=== PATIENT | female | born 1960 | race Two or more races ===

== ENCOUNTER 2024-11-03 18:39 | Inpatient (IN) | payer MEDICAID, OTHER ==
[~2024-11-03] VITALS: Ht 157.5 cm; Wt 69.1 kg
[2024-11-03] MEDS: SODIUM CHLORIDE 0.9% 1,000 ML IVB ONE (19:30)
--- NOTE | 2024-11-03 19:37 | ED.PDOC ---
GI ASSESSMENT HPI Comments 64-year-old female came to ER for abdominal pain. Patient states for the past 3 days, she has been having right upper quadrant abdominal pain, sharp cramping, nonradiating, associated bouts of nausea, vomiting and diarrhea. Patient is status post cholecystectomy Chief Complaint: Abdominal Pain Time Seen by MD: 19:36 Reviewed Notes: Nurses Notes Allergies: Coded Allergies: NO KNOWN ALLERGIES (Unverified , 11/03/24) Information Source: Patient Mode of Arrival: Wheelchair Timing: Days Duration: Intermittent Prehospital treatment: None Quality: Cramping, Sharp Vomitus: Watery Stool: Loose, Watery Severity: Moderate Recent: None Recent Hx of: Abdominal Surgery Pain Location: RUQ Modifying Factors: Nothing Associated sign and symptoms: Nausea, Vomiting, Diarrhea, Abdominal Pain Past Medical History PAST MEDICAL HISTORY: Denies Past Medical History (Other): Blindness Surgical History: Cholecystectomy Surgical History (Other): Knee surgery 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: 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 all MATERIALS TECHNICIAN Hx Family History Family History: Reviewed,noncontributory to illness Social History Smoker: Non-Smoker Alcohol: Denies ETOH Use Drugs: Denies Drug Use Lives In: Home Constitutional: denies: chills, diaphoresis, fatigue, fever, malaise, sweats, weakness, others EENTM: denies: blurred vision, double vision, ear bleeding, ear discharge, ear drainage, ear pain, ear ringing, eye pain, eye redness, hearing loss, mouth pain, mouth swelling, nasal discharge, nose bleeding, nose congestion, nose pain, photophobia, tearing, throat pain, throat swelling, voice changes, others Respiratory: denies: cough, hemoptysis, orthopnea, SOB at rest, shortness of breath, SOB with excertion, stridor, wheezing, others Cardiovascular: denies: chest pain, dizzy spells, diaphoresis, Dyspnea on exertion, edema, irregular heart beat, left arm pain, lightheadedness, palpitations, PND, syncope, others Gastrointestinal: reports: abdominal pain, diarrhea, nausea, poor appetite, vomiting; denies: abdomen distended, blood streaked bowels, constipated, dysphagia, difficulty swallowing, hematemesis, melena, poor fluid intake, rectal bleeding, rectal pain, others Genitourinary: denies: abnormal vagina bleeding, burning, dyspareunia, dysuria, flank pain, frequency, hematuria, incontinence, pain, , vagina discharge, urgency, others Neurological: denies: dizziness, fainting, headache, left sided numbness, left sided weakness, numbness, paresthesia, pre-existing deficit, right sided numbness, right sided weakness, seizure, speech problems, tingling, tremors, weakness, others Musculoskeletal: denies: back pain, gout, joint pain, joint swelling, muscle pain, muscle stiffness, neck pain, others Integumetry: denies: bruises, change in color, change in hair/nails, dryness, laceration, lesions, lumps, rash, wounds, others Allergic/Immunocompromised: denies: Difficulty Healing, Frequent Infections, Hives, Itching, others Hematologic/Lymphatic: denies: anemia, blood clots, easy bleeding, easy bruising, swollen glands, others Endocrine: denies: excessive hunger, excessive sweating, excessive thirst, excessive urination, flushing, intolerance to cold, intolerance to heat, unexplained weight gain, unexplained weight loss, others Psychiatric: denies: anxiety, bipolar disorder, depression, hopeless, panic disorder, schizophrenia, sleepless, suicidal, others Physical Exam General Appearance: No Apparent Distress, Normal HEENT: Normal ENT Inspection, Pharynx Normal, TMs Normal Neck: Full Range of Motion, Non-Tender, Normal, Normal Inspection Respiratory: Chest Non-Tender, Lungs Clear, No Accessory Muscle Use, No Respiratory Distress, Normal Breath Sounds Cardiovascular: No Edema, No JVD, No Murmur, No Gallop, Normal Peripheral Pulses, Regular Rate/Rhythm Breast Exam: Deferred Gastrointestinal: No Organomegaly, No Pulsatile Mass, Normal Bowel Sounds, RUQ, Soft, Tenderness Genitalia: Deferred Pelvic: Deferred Rectal: Deferred Extremities: No calf tenderness, Normal capillary refill, Normal inspection, Normal range of motion, Non-tender, No pedal edema Musculoskeletal : Apperance: Normal Neurologic: Alert, 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 Was a procedure done?: No GI differential Dx Differential Diagnosis: Bowel Obstruction, Diverticular disease, Gastritis/PUD, Gastroenteritis, Pancreatitis, Dehydration, Electrolyte Imbalance X-Ray, Labs, Meds, VS Vital Signs Date Time Temp Pulse Resp B/P (MAP) Pulse Ox O2 Delivery O2 Flow Rate FiO2 11/03/24 18:41 97.5 87 19 99/62 99 97.5 Lab Test 11/03/24 20:23 11/03/24 19:40 Range/Units Urine Color Pending Urine Clarity Pending Urine pH Pending Urine Specific [place] Pending Urine Protein Pending Urine Ketones Pending Urine Blood Pending Urine Nitrite Pending Urine Bilirubin Pending Urine Urobilinogen Pending Urine Leukocyte Esterase Pending Urine RBC Pending Urine Microscopic WBC Pending Urine Squamous Epithelial Cells Pending Urine Bacteria Pending Urine Glucose Pending White Blood Count 8.4 4.4-10.8 10^3/uL Red Blood Count 4.23 4.0-5.20 10^6/uL Hemoglobin 13.3 12.2-16.2 g/dL Hematocrit 38.6 36.0-46.0 % Mean Corpuscular Volume 91.3 80.0-100.0 fL Mean Corpuscular Hemoglobin 31.5 28.0-32.0 pg Mean Corpuscular Hemoglobin Concent 34.5 32.0-36.0 g/dL Red Cell Distribution Width 12.7 11.8-14.3 % Platelet Count 181 140-450 10^3/uL Mean Platelet Volume 10.5 6.9-10.8 fL Neutrophils (%) (Auto) 54.9 37.0-80.0 % Lymphocytes (%) (Auto) 33.0 10.0-50.0 % Monocytes (%) (Auto) 7.9 0.0-12.0 % Eosinophils (%) (Auto) 3.5 0.0-7.0 % Basophils (%) (Auto) 0.7 0.0-2.0 % Neutrophils # (Auto) 4.6 1.6-8.6 10 ^3/uL Lymphocytes # (Auto) 2.8 0.4-5.4 10 ^3/uL Monocytes # (Auto) 0.7 0-1.3 10 ^3/uL Eosinophils # (Auto) 0.3 0-0.8 10 ^3/uL Basophils # (Auto) 0.1 0-0.2 10 ^3/uL Nucleated Red Blood Cells 0.0 % Sodium Level 135 L 136-145 mmol/L Potassium Level 5.0 3.5-5.1 mmol/L Chloride Level 101 98-107 mmol/L Carbon Dioxide Level 25 20-31 mmol/L Anion Gap 9 5-15 Blood Urea Nitrogen 29 H 9-23 mg/dL Creatinine 1.73 H 0.550-1.02 mg/dL Glomerular Filtration Rate Calc 33 >90 mL/min BUN/Creatinine Ratio 16.8 10.0-20.0 Serum Glucose 334 H 74-106 mg/dL Calcium Level 9.5 8.7-10.4 mg/dL Total Bilirubin 0.3 0.2-1.0 mg/dL Aspartate Amino Transferase (AST) 16 13-40 U/L Alanine Aminotransferase (ALT) 20 7-40 U/L Alkaline Phosphatase 111 46-116 U/L Total Protein 7.7 5.7-8.2 g/dL Albumin 4.4 3.2-4.8 g/dL Lipase 86 H 12-53 U/L Time of 1ST Reevaluation: 19:34 Reevaluation 1ST: Unchanged Patient Education/Counseling: Diagnosis, Treatment Family Education/Counseling: Diagnosis, Treatment SEPSIS Sepsis Screen Date sepsis recognized/suspect: Nov 03, 2024 Time Sepsis recognized/suspect: 1840 Recent Procedure: No On Antibiotic Therapy: No Respiratory Rate >20: No Heart Rate >90: No Temp<36 C (96.8 F) or >38.3 C: No SBP <90 or MAP <65 mmHG: No New Acute Mental Status Change: No Is the patient on CPAP, BIPAP,: No Physician Orders Urinalysis (11/03/24 19:22) Ct Ab Pel Wo Con-No Oral Or Iv (11/03/24 19:22) Lactic Acid W/ Reflex Order (11/03/24 22:12) Blood Culture (11/03/24 22:12) Piperacillin-Tazob 3.375gm (Zosyn 3.375g (11/03/24 22:15) Vital Signs Date Time Temp Pulse Resp B/P (MAP) Pulse Ox O2 Delivery O2 Flow Rate FiO2 11/03/24 18:41 97.5 87 19 99/62 99 97.5 Laboratory Tests Test 11/03/24 19:40 White Blood Count 8.4 10^3/uL (4.4-10.8) Departure 1 Departure Time of Disposition: 22:16 Impression: Primary Impression: Urinary tract infection Additional Impressions: Non-specific colitis Dehydration Acute renal injury Disposition: ADMITTED INPATIENT Admit to: Med Surg Condition: Guarded Comments 64-year-old female with severe abdominal pain and vomiting. CT of the abdomen and pelvis shows some nonspecific colitis and possible UTI. Lab results reviewed and show dehydration and acute renal injury with BUN elevated at 29 and creatinine elevated at 1.73. Patient was given IV fluids and IV Zosyn antibiotics. Patient will need to be admitted for colitis, UTI, dehydration and acute renal injury Critical Care Note Critical Care Time?: No Stability Stability form required: No Heart Score Heart Score: Heart Score Response (Comments) Value History N/A 0 EKG N/A 0 Age N/A 0 Risk Factors N/A 0 Troponin N/A 0 Total 0 I personally scribed for MAYNOR DOLAN MD ([email or web address]) on 11/03/24 at 19:37. Electronically submitted by Wilfredo Muñoz ([email or web address]). MAYNOR DOLAN MD Nov 03, 2024 19:37
[2024-11-03 20:12] LABS: Hematocrit 38.6 % (36.0-46.0); Hemoglobin 13.3 g/dL (12.2-16.2); Mean Corpuscular Hemoglobin 31.5 pg (28.0-32.0); Mean Corpuscular Volume 91.3 fL (80.0-100.0); Nucleated Red Blood Cells % 0.0 %
[2024-11-03 20:27] LABS: Alanine Aminotransferase 20 U/L (7-40); Albumin 4.4 g/dL (3.2-4.8); Alkaline Phosphatase 111 U/L (46-116); Anion Gap 9 (5-15); BUN/Creatinine Ratio 16.8 (10.0-20.0); Bilirubin, Total 0.3 mg/dL (0.2-1.0); Calcium 9.5 mg/dL (8.7-10.4); Carbon Dioxide 25 mmol/L (20-31); Chloride 101 mmol/L (98-107); Potassium 5.0 mmol/L (3.5-5.1); Total Protein 7.7 g/dL (5.7-8.2)
[2024-11-03 20:29] LABS: Blood Urea Nitrogen 29 mg/dL (9-23); Glucose 334 mg/dL (74-106); Lipase 86 U/L (12-53); Sodium 135 mmol/L (136-145)
--- NOTE | 2024-11-03 21:44 | DVH ---
EXAM: CT CT AB PEL WO CON-NO ORAL OR IV INDICATION: right sided abd pain , vomiting. h/o cholecystectomy TECHNIQUE: Volumetric multidetector CT images of the abdomen and pelvis were obtained without contras t. All CT scans at this facility use dose modulation, iterative reconstruction, and/or weight based d osing when appropriate to reduce radiation dose to as low as reasonably achievable. COMPARISON: None FINDINGS: [LOWER CHEST]: The partially visualized lung bases are clear without a pleural effusion. The cardiac size is normal without pericardial effusion. coronary artery calcifications. [LIVER]: Normal hepatic size without suspicious focal lesion. [GALLBLADDER AND BILIARY TREE]: Surgically absent. [SPLEEN]: Unremarkable. [PANCREAS]: Unremarkable. [ADRENAL GLANDS]: Fat containing left adrenal, 1.2 cm [KIDNEYS]: No hydronephrosis. No nephroureterolithiasis. Benign-appearing cysts left posterior kidney measuring 1 cm [BLADDER]: Intravesicular air. Circumferential bladder wall thickening, which may be seen in the sett ing of acute versus chronic cystitis and correlate with urinalysis. [REPRODUCTIVE ORGANS]: Unremarkable. [BOWEL/MESENTERY]: Stomach is normal. No CT evidence of bowel obstruction. Mild stool burden. Incons picuous air-fluid levels without dilation in the proximal jejunal loops. [ASCITES]: Absent [LYMPHADENOPATHY]: No pathologically enlarged lymph nodes by CT size criteria [VASCULATURE]: No aneurysmal dilatation. [ABDOMINAL WALL]: Unremarkable. [MUSCULOSKELETAL]: No acute fracture or aggressive focal osseous lesion. IMPRESSION: 1. No hydroureteronephrosis or nephroureterolithiasis. 2. Circumferential bladder wall thickening, which may be seen in the setting of acute versus chronic cystitis and correlate with urinalysis. Intravesicular air which may be related to recent instrumenta tion versus infection 3. Inconspicuous air-fluid levels without dilation in the proximal jejunal loops. Correlate with clin ical exam to exclude enteritis.
[2024-11-03 22:25] LABS: Urine Protein, UAD 1+ (Negative)
[2024-11-03] MEDS ORDERED: ACETAMINOPHEN 325 MG TAB PO PRN (22:30)
[2024-11-03] MEDS: SODIUM CHLORIDE 0.9% 1,000 ML IV SCH (22:30)
[2024-11-03] MEDS ORDERED: DEXTROSE (50%) 50ML SYRG IV PRN (22:30)
--- NOTE | 2024-11-03 23:38 | DVHHP2 ---
History of Present Illness Reason for Visit: Acute abdominal pain History of Present Illness The patient is a 64-year-old female with past medical history of blindness who presented to [facility] ED with complaint of abdominal pain. Patient reports for the past 3 days, she has been having right upper quadrant abdominal pain, described as sharp cramping in nature, nonradiating, associated bouts of nausea, vomiting, and diarrhea. Patient was seen and evaluated in the ED, laboratory data shows WBC 8.4, platelets 181, sodium 135, potassium 5.0, BUN 29, creatinine 1.73, glucose 334, calcium 9.5, lipase 86, blood pressure 90/56, heart rate 83, temperature 97.6 F, O2 saturation 97% on room air. Abdomen/pelvis CT showed no hydroureteronephrosis hydro-ureterolithiasis, noted circumferential bladder wall thickening which may be seen in the setting of acute versus chronic cystitis and correlate with urinalysis. Please see medication orders section in the computer. On my assessment, patient denied chest pain, no headache, no dizziness, no diaphoresis, no shortness of breath, no abdominal pain, nausea, vomiting, or diarrhea at this moment, no fever, no chills. Patient was admitted for further evaluation and medical management. Past Medical History Blindness Past Surgical History Cholecystectomy, Knee surgery Family History Reviewed, noncontributory to the management of this case. Past Social History The patient lives at home, denies smoking, alcohol or illicit drugs abuse. Review of Systems Constitutional: No: Fever, Chills, Sweats, Weakness, Malaise, Other Eyes: No: Pain, Vision change, Conjunctivae inflammation, Eyelid inflammation, Other, Redness ENT: No: Ear pain, Ear discharge, Nose pain, Nose discharge, Nose congestion, Mouth pain, Mouth swelling, Throat pain, Throat swelling, Other Respiratory: No: Cough, Dry, Shortness of breath, SOB with excertion, Wheezing, Hemoptysis, Pleuritic Pain, Sputum, Wheezing, Other Cardiovascular: No: Chest Pain, Palpitations, Orthopnea, Paroxysmal Noc. Dyspnea, Edema, Lt Headedness, Other Gastrointestinal: Nausea, Vomiting, Abdominal Pain, Other (Poor appetite); No: Diarrhea, Constipation, Melena, Hematochezia Genitourinary: No Dysuria, No Frequency, No Incontinence, No Hematuria, No Retention, No Other Musculoskeletal: No: other, neck pain, shoulder pain, arm pain, back pain, hand pain, leg pain, foot pain Skin: No: Rash, Lesions, Jaundice, Bruising, Other Neurological: No: Weakness, Numbness, Incoordination, Change in speech, Confusion, Seizures, Other Allergies: Coded Allergies: NO KNOWN ALLERGIES (Unverified , 11/03/24) Medications Current Medications Medications Dose Ordered Sig/Cristiana Route Start Time Stop Time Status Last Admin Dose Admin Diagnostic Test (Pha) 1 strip IQ4HR 11/04/24 00:00 Insulin Human Regular IQ4HR SC 11/04/24 00:00 Dextrose 50 ml UD PRN IV 11/03/24 22:30 Sodium Chloride 1,000 ml @ 60 mls/hr [id number] IV 11/03/24 22:30 Acetaminophen/ Hydrocodone Bitart 1 tab Q4HP PRN PO 11/03/24 22:30 Ondansetron HCl 4 mg Q4HP PRN IV 11/03/24 22:30 Docusate Sodium 100 mg BIDPRN PRN PO 11/03/24 22:30 Acetaminophen 650 mg Q6HP PRN PO 11/03/24 22:30 Exam Vital Signs Vital Signs Date Time Temp Pulse Resp B/P (MAP) Pulse Ox O2 Delivery O2 Flow Rate FiO2 11/03/24 21:00 83 18 98/56 (70) 97 11/03/24 18:41 97.5 97.5 General Appearance: Alert, Oriented X3, Cooperative, No acute distress HEENT: Atraumatic, PERRLA, EOMI, Mucous membr. moist/pink Respiratory: Normal air movement Cardiovascular: Regular rate, Normal S1, Normal S2, No murmurs Abdominal: Normal bowel sounds, Soft, No tenderness, No hepatospenomegaly, No masses Extremities: No clubbing, No cyanosis, No edema, Normal pulses, No tenderness/swelling Skin: No rashes, No breakdown, No significant lesion Neuro: Normal speech, Normal tone, Sensation intact, Cranial nerves 3-12 NL, Reflexes 2+, Other (Generalized weakness) Psych/Mental Status: Mental status NL, Mood NL Labs/Xrays Labs Test 11/03/24 22:25 11/03/24 20:23 11/03/24 19:40 Range/Units Lactic Acid Level 1.8 0.4-2.0 mmol/L Urine Color Light-yellow Yellow Urine Clarity Turbid H Clear Urine pH 5.0 5.0-9.0 Urine Specific [place] 1.015 1.001-1.035 Urine Protein 1+ H Negative Urine Ketones Negative Negative Urine Blood Trace H Negative /uL Urine Nitrite Negative Negative Urine Bilirubin Negative Negative Urine Urobilinogen Normal Negative mg/dL Urine Leukocyte Esterase 3+ Negative /uL Urine RBC 3 0 - 4 /hpf Urine Microscopic WBC 91 H 0-5 /HPF Urine Squamous Epithelial Cells Few <5 /hpf Urine Bacteria None seen None Seen /hpf Urine Hyaline Casts Few 0 - 2 /lpf Urine Mucus Few None Seen Urine Glucose 4+ H Normal mg/dL White Blood Count 8.4 4.4-10.8 10^3/uL Red Blood Count 4.23 4.0-5.20 10^6/uL Hemoglobin 13.3 12.2-16.2 g/dL Hematocrit 38.6 36.0-46.0 % Mean Corpuscular Volume 91.3 80.0-100.0 fL Mean Corpuscular Hemoglobin 31.5 28.0-32.0 pg Mean Corpuscular Hemoglobin Concent 34.5 32.0-36.0 g/dL Red Cell Distribution Width 12.7 11.8-14.3 % Platelet Count 181 140-450 10^3/uL Mean Platelet Volume 10.5 6.9-10.8 fL Neutrophils (%) (Auto) 54.9 37.0-80.0 % Lymphocytes (%) (Auto) 33.0 10.0-50.0 % Monocytes (%) (Auto) 7.9 0.0-12.0 % Eosinophils (%) (Auto) 3.5 0.0-7.0 % Basophils (%) (Auto) 0.7 0.0-2.0 % Neutrophils # (Auto) 4.6 1.6-8.6 10 ^3/uL Lymphocytes # (Auto) 2.8 0.4-5.4 10 ^3/uL Monocytes # (Auto) 0.7 0-1.3 10 ^3/uL Eosinophils # (Auto) 0.3 0-0.8 10 ^3/uL Basophils # (Auto) 0.1 0-0.2 10 ^3/uL Nucleated Red Blood Cells 0.0 % Sodium Level 135 L 136-145 mmol/L Potassium Level 5.0 3.5-5.1 mmol/L Chloride Level 101 98-107 mmol/L Carbon Dioxide Level 25 20-31 mmol/L Anion Gap 9 5-15 Blood Urea Nitrogen 29 H 9-23 mg/dL Creatinine 1.73 H 0.550-1.02 mg/dL Glomerular Filtration Rate Calc 33 >90 mL/min BUN/Creatinine Ratio 16.8 10.0-20.0 Serum Glucose 334 H 74-106 mg/dL Calcium Level 9.5 8.7-10.4 mg/dL Total Bilirubin 0.3 0.2-1.0 mg/dL Aspartate Amino Transferase (AST) 16 13-40 U/L Alanine Aminotransferase (ALT) 20 7-40 U/L Alkaline Phosphatase 111 46-116 U/L Total Protein 7.7 5.7-8.2 g/dL Albumin 4.4 3.2-4.8 g/dL Lipase 86 H 12-53 U/L PATIENT: CHUYITA FISHER ACCT: [id number] UNIT: [id number] : 1960 LOC: ER ROOM / BED: / AGE / SEX: 64 / F ADM STATUS: REG ER SERVICE 21 ORDERING PHYSICIAN: MAYNOR DOLAN MD PROCEDURE(s): ABPL - CT AB PEL WO CON-NO ORAL OR IV REASON: right sided abd pain , vomiting. h/o cholecystectomy ORDER NUMBER(s): [id number], ACCESSION NUMBER(s): [id number] EXAM: CT CT AB PEL WO CON-NO ORAL OR IV INDICATION: right sided abd pain, vomiting. h/o cholecystectomy TECHNIQUE: Volumetric multidetector CT images of the abdomen and pelvis were obtained without contrast. All CT scans at this facility use dose modulation, iterative reconstruction, and/or weight based dosing when appropriate to reduce radiation dose to as low as reasonably achievable. COMPARISON: None FINDINGS: [LOWER CHEST]: The partially visualized lung bases are clear without a pleural effusion. The cardiac size is normal without pericardial effusion. coronary artery calcifications. [LIVER]: Normal hepatic size without suspicious focal lesion. [GALLBLADDER AND BILIARY TREE]: Surgically absent. [SPLEEN]: Unremarkable. [PANCREAS]: Unremarkable. [ADRENAL GLANDS]: Fat containing left adrenal, 1.2 cm [KIDNEYS]: No hydronephrosis. No nephro-ureterolithiasis. Benign-appearing cysts left posterior kidney measuring 1 cm [BLADDER]: Intravesicular air. Circumferential bladder wall thickening, which may be seen in the setting of acute versus chronic cystitis and correlate with urinalysis. [REPRODUCTIVE ORGANS]: Unremarkable. [BOWEL/MESENTERY]: Stomach is normal. No CT evidence of bowel obstruction. Mild stool burden. Inconspicuous air-fluid levels without dilation in the proximal jejunal loops. [ASCITES]: Absent [LYMPHADENOPATHY]: No pathologically enlarged lymph nodes by CT size criteria [VASCULATURE]: No aneurysmal dilatation. [ABDOMINAL WALL]: Unremarkable. [MUSCULOSKELETAL]: No acute fracture or aggressive focal osseous lesion. IMPRESSION: 1. No hydroureteronephrosis or nephro-ureterolithiasis. 2. Circumferential bladder wall thickening, which may be seen in the setting of acute versus chronic cystitis and correlate with urinalysis. Intravesicular air which may be related to recent instrumentation versus infection 3. Inconspicuous air-fluid levels without dilation in the proximal jejunal loops. Correlate with clinical exam to exclude enteritis. SEPSIS Sepsis Screen Date sepsis recognized/suspect: Nov 03, 2024 Time Sepsis recognized/suspect: 1840 Recent Procedure: No On Antibiotic Therapy: No Respiratory Rate >20: No Heart Rate >90: No Temp<36 C (96.8 F) or >38.3 C: No SBP <90 or MAP <65 mmHG: No New Acute Mental Status Change: No Is the patient on CPAP, BIPAP,: No Physician Orders Ct Ab Pel Wo Con-No Oral Or Iv (11/03/24 19:22) Blood Culture (11/03/24 22:12) [facility]Diabetes (11/04/24 Breakfast) *[facility] (11/03/24 22:22) Glucose Blood (Accu-Chek Comfort Curve T (11/04/24 00:00) Insulin R (Human) (Insulin R) (11/04/24 00:00) Dextrose 50% Syringe (11/03/24 22:30) Allergies (11/03/24 22:22) Code Status (11/03/24 22:22) Sodium Chloride 0.9% (11/03/24 22:30) Oxygen Per Hour (11/03/24 22:22) Hydrocodone-Acet 5/325mg Tab ([place] 32 (11/03/24 22:30) Ondansetron Hcl (Zofran) (11/03/24 22:30) Docusate Sodium Capsule (Colace Capsule) (11/03/24 22:30) Complete Blood Count (11/04/24 04:00) Comprehensive Metabolic Panel (11/04/24 04:00) Condition: Serious (11/03/24 22:22) Acetaminophen Tablet (Tylenol Tablet) (11/03/24 22:30) Bedrest With Bathroom Privileg (11/03/24 22:22) Sequential Compression Device (11/03/24 ) Vital Signs Date Time Temp Pulse Resp B/P (MAP) Pulse Ox O2 Delivery O2 Flow Rate FiO2 11/03/24 21:00 83 18 98/56 (70) 97 11/03/24 18:41 97.5 87 19 99/62 99 97.5 Laboratory Tests Test 11/03/24 19:40 11/03/24 22:25 White Blood Count 8.4 10^3/uL (4.4-10.8) Lactic Acid Level 1.8 mmol/L (0.4-2.0) Medications Medications Dose Ordered Sig/Cristiana Route Start Time Stop Time Status Last Admin Dose Admin Sodium Chloride 1,000 ml @ 1,000 mls/hr Q1H ONCE IVB 11/03/24 19:30 11/03/24 20:29 DC 11/03/24 19:30 1,000 MLS/HR Assessment/Plan Assessment/Plan Acute abdominal pain Non-specific colitis Dehydration Acute renal injury Urinary tract infection Plan 1. Admit to telemetry unit 2. Breathing treatment 3. Pain control management 4. IV antibiotic management 5. Management of fluids and electrolytes 6. Consultation for hospitalist 7. Diagnostic test abdomen/pelvis CT 8. DVT prophylaxis-on SCDs 9. Repeat labs CBC, CMP in a.m. 10. Home medication reviewed and reconciled 11. Continue with current medical management 12. Treatment plan discussed with patient and RN. Patient verbalized understanding. Plan discussed with: Patient, Other (RN) My Orders Orders - EMILIE MARTINEZ DNP Procedure Category Date Status Time Consistent DIET 11/04/24 Transmitted [facility]Diabetes Breakfast *[facility] CONS 11/03/24 Transmitted -[place] 22:22 Glucose Blood PHA 8/29/25 In Process (Accu-Chek Comfort 00:00 Insulin R (Human) PHA 11/04/24 In Process (Insulin R) 00:00 Dextrose 50% Syringe PHA 11/03/24 In Process 22:30 Allergies HUNTER 11/03/24 In Process 22:22 Code Status CODE 11/03/24 Transmitted 22:22 Sodium Chloride 0.9% PHA 11/03/24 In Process 22:30 Oxygen Per Hour RT 11/03/24 Transmitted 22:22 Hydrocodone-Acet PHA 11/03/24 In Process 5/325mg Tab ([place] 22:30 Ondansetron Hcl PHA 11/03/24 In Process (Zofran) 22:30 Docusate Sodium PHA 11/03/24 In Process Capsule (Colace 22:30 Complete Blood Count LAB 11/04/24 Verified 04:00 Comprehensive LAB 11/04/24 Verified Metabolic Panel 04:00 Condition: Serious HUNTER 11/03/24 In Process 22:22 Acetaminophen Tablet PHA 11/03/24 In Process (Tylenol Tablet) 22:30 Bedrest With Bathroom HUNTER 11/03/24 In Process Privileg 22:22 Sequential HUNTER 11/03/24 In Process Compression Device Problem List: (1) Acute abdominal pain (2) Non-specific colitis (3) Dehydration (4) Acute renal injury (5) Urinary tract infection Date of Service: Nov 03, 2024 Billing Provider: EMILIE MARTINEZ DNP Common Visit Codes: [id number] INP/OBS CARE (HIGH) EMILIE MARTINEZ DNP Nov 03, 2024 23:38
[2024-11-03] MEDS: PIPERACILLIN-TAZOB 3.375GM 100 ML IV ONE (23:42)
[2024-11-03] MEDS ORDERED: NITROGLYCERIN 0.4 MG SL TAB SL PRN (23:45)
[2024-11-04] MEDS: MORPHINE SULFATE 4 MG/ML SYR/VIAL IV ONE (00:21)
[2024-11-04] MEDS: ONDANSETRON HCL 4 MG/2 ML VIAL IV ONE (00:22)
[2024-11-04] MEDS: ACCU-CHEK COMFORT CURVE STRIP VI SCH (00:28)
[2024-11-04] MEDS: InsuLIN REG 1unit/0.01ml Soln (100units/ml) SC SCH (00:29)
[2024-11-04] MEDS: MORPHINE SULFATE INJ 2 MG/ml SYRG IV PRN (04:47)
[2024-11-04] MEDS: ONDANSETRON HCL 4 MG/2 ML VIAL IV PRN (04:48)
[2024-11-04 05:39] LABS: Hematocrit 35.7 % (36.0-46.0); Hemoglobin 12.3 g/dL (12.2-16.2); Mean Corpuscular Hemoglobin 31.7 pg (28.0-32.0); Mean Corpuscular Volume 91.7 fL (80.0-100.0); Nucleated Red Blood Cells % 0.0 %
[2024-11-04 06:14] LABS: Albumin 4.2 g/dL (3.2-4.8); Anion Gap 12 (5-15); BUN/Creatinine Ratio 17.5 (10.0-20.0); Calcium 8.8 mg/dL (8.7-10.4); Carbon Dioxide 21 mmol/L (20-31); Chloride 105 mmol/L (98-107); Potassium 4.1 mmol/L (3.5-5.1); Sodium 138 mmol/L (136-145); Total Protein 7.2 g/dL (5.7-8.2)
[2024-11-04 06:15] LABS: Bilirubin, Total 0.6 mg/dL (0.2-1.0)
[2024-11-04 06:28] LABS: Alanine Aminotransferase 187 U/L (7-40); Alkaline Phosphatase 122 U/L (46-116); Blood Urea Nitrogen 25 mg/dL (9-23); Glucose 187 mg/dL (74-106)
[2024-11-04 08:05] VITALS: PULSE 92; RESP 15; O2SAT 91
[2024-11-04] MEDS: SODIUM CHLORIDE 0.9% 1,000 ML IV SCH ×2 (10:49→15:20)
[2024-11-04 11:04] LABS: Protein, Urine 63.7 mg/dL (1-14); Protein, Urine 64.5 mg/dL (1-14)
--- NOTE | 2024-11-04 14:05 | DVHPN2 ---
Subjective p/w several days of R sided abd pain, N/V, no diarrhea. Reviewed: Care Plan Changes from previous H/P or p: No Changes Eyes: No Pain, No Vision change, No Conjunctivae inflammation, No Eyelid inflammation, No Other, No Redness ENT: No Ear pain, No Ear discharge, No Nose pain, No Nose discharge, No Nose congestion, No Mouth pain, No Mouth swelling, No Throat pain, No Throat swelling, No Other Cardiovascular: No Chest Pain, No Palpitations, No Orthopnea, No Paroxysmal Noc. Dyspnea, No Edema, No Lt Headedness, No Other Respiratory: No Cough, No Dry, No Shortness of breath, No SOB with excertion, No Wheezing, No Hemoptysis, No Pleuritic Pain, No Sputum, No Other Gastrointestinal: Nausea, Vomiting, Abdominal Pain; No Diarrhea, No Constipation, No Melena, No Hematochezia; Other (Poor appetite) Genitourinary: No Dysuria, No Frequency, No Incontinence, No Hematuria, No Retention, No Other Musculoskeletal: No other, No neck pain, No shoulder pain, No arm pain, No back pain, No hand pain, No leg pain, No foot pain Skin: No Rash, No Lesions, No Jaundice, No Bruising, No Other Objective Vitals Vital Signs Date Time Temp Pulse Resp B/P (MAP) Pulse Ox O2 Delivery O2 Flow Rate FiO2 11/04/24 12:00 93 12 103/61 (75) 91 11/04/24 08:05 Room Air* 0 21 11/03/24 18:41 97.5 97.5 Exam HEENT: AT CV: RRR lung: CTAB abd: Soft/mild tenderness to R quadrant ext: No edema Medications Current Medications Medications Dose Ordered Sig/Cristiana Route Start Time Stop Time Status Last Admin Dose Admin Diagnostic Test (Pha) 1 strip IQ4HR 11/04/24 00:00 11/04/24 12:22 1 STRIP Insulin Human Regular IQ4HR SC 11/04/24 00:00 11/04/24 12:24 3 UNITS Dextrose 50 ml UD PRN IV 11/03/24 22:30 Acetaminophen/ Hydrocodone Bitart 1 tab Q4HP PRN PO 11/03/24 22:30 Ondansetron HCl 4 mg Q4HP PRN IV 11/03/24 22:30 11/04/24 13:29 4 MG Docusate Sodium 100 mg BIDPRN PRN PO 11/03/24 22:30 Acetaminophen 650 mg Q6HP PRN PO 11/03/24 22:30 Nitroglycerin 0.4 mg Q5MINP PRN SL 11/03/24 23:45 Morphine Sulfate 2 mg Q30M PRN IV 11/03/24 23:45 11/04/24 04:47 2 MG Ceftriaxone Sodium 50 ml @ 100 mls/hr DAILY@09 IV 11/05/24 09:00 Sodium Chloride 1,000 ml @ 60 mls/hr [id number] IV 11/04/24 10:45 11/04/24 10:49 60 MLS/HR Laboratory Results Laboratory Tests 11/04/24 04:33 11/04/24 04:53 Chemistry Test 11/03/24 19:40 11/04/24 04:33 Albumin 4.4 g/dL (3.2-4.8) 4.2 g/dL (3.2-4.8) Calcium Level 9.5 mg/dL (8.7-10.4) 8.8 mg/dL (8.7-10.4) Total Protein 7.7 g/dL (5.7-8.2) 7.2 g/dL (5.7-8.2) Lipid panel Test 11/03/24 19:40 Lipase 86 U/L (12-53) H LFT Test 11/03/24 19:40 11/04/24 04:33 Alanine Aminotransferase (ALT) 20 U/L (7-40) 187 U/L (7-40) H Alkaline Phosphatase 111 U/L (46-116) 122 U/L (46-116) H Aspartate Amino Transferase (AST) 16 U/L (13-40) 525 U/L (13-40) H Total Bilirubin 0.3 mg/dL (0.2-1.0) 0.6 mg/dL (0.2-1.0) HgA1c, TSH Test 11/04/24 04:53 Hemoglobin A1c 11.5 % A1C (<5.7) H Urinalysis Test 11/03/24 20:23 Urine Color Light-yellow (Yellow) Urine Clarity Turbid (Clear) H Urine pH 5.0 (5.0-9.0) Urine Specific [place] 1.015 (1.001-1.035) Urine Protein 1+ (Negative) H Urine Ketones Negative (Negative) Urine Blood Trace /uL (Negative) H Urine Nitrite Negative (Negative) Urine Bilirubin Negative (Negative) Urine Urobilinogen Normal mg/dL (Negative) Urine Leukocyte Esterase 3+ /uL (Negative) Urine RBC 3 /hpf (0 - 4) Urine Microscopic WBC 91 /HPF (0-5) H Urine Squamous Epithelial Cells Few /hpf (<5) Urine Bacteria None seen /hpf (None Seen) Urine Hyaline Casts Few /lpf (0 - 2) Urine Mucus Few (None Seen) Urine Creatinine 126.17 mg/dL (30.0-125.0) H Urine Protein/Creatinine Ratio 0.50 Urine Sodium 36 mmol/L (40-220) L Urine Glucose 4+ mg/dL (Normal) H Urine Total Protein 63.7 mg/dL (1-14) H Labs and/or images reviewed: Labs reviewed by me, Image(s) reviewed by me Assessment/Plan Assessment/Plan 64 yo F with: #Acute abdominal pain #Enteritis #UTI -admit for supportive care: IVF, Abx -diet as tolerated -pain control -check Lipase #Transaminitis -ABD CT negative -check ABD US. -report of prior cholecystectomy (40 years ago). #DM-2 -SSI low, CCD med diet as tolerated #BENJAMÍN -mild -supportive care #hx of blindness -pt relates from hx of Diabetes. Plan discussed with: Patient, Spouse My Orders Orders - ADRI UMANA MD Procedure Category Date Status Time Lipase LAB 11/04/24 Verified 13:55 Date of Service: Nov 04, 2024 Billing Provider: ADRI UMANA MD Common Visit Codes: [id number] INP/OBS CARE(MOD) ADRI UMANA MD Nov 04, 2024 14:05
--- NOTE | 2024-11-04 15:21 | DVH ---
ULTRASOUND ABDOMEN, LIMITED RIGHT UPPER QUADRANT: REASON FOR EXAM: abd pain, elevated liver enzymes. Elevated lipase. Right lower quadrant pain. TECHNIQUE: Real-time sector scans in the transverse and longitudinal planes were obtained through th e right upper quadrant of the abdomen. FINDINGS: The liver is of normal size and contour. There is hepatopetal flow in the portal vein. The re is no intrahepatic nor extrahepatic biliary ductal dilatation. The common bile duct measures 7 mm . The gallbladder is surgically absent. The pancreas is obscured by bowel gas. The right kidney measures 9.1 cm. No hydronephrosis or nephrolithiasis is identified. There is no e vidence of right renal mass or cyst. The visualized portions of the abdominal aorta demonstrate no evidence of aneurysmal dilatation. The visualized inferior vena cava is unremarkable. There is no free fluid identified in the right upper quadrant. IMPRESSION: The pancreas is obscured by bowel gas and is not visualized on this study. The gallbladder is surgically absent.
--- NOTE | 2024-11-04 18:54 | DVHCONRES ---
Date Seen: Nov 04, 2024 Resident Creating Document: CRISSYMANJINDERKOSTA RESIDENT History of Present Illness 64-year-old female with past medical history of legal blindness, diabetes mellitus of 29 years, hypertension, CKD presented with complaints of right lower quadrant abdominal pain for last three days. She also mentioned associated nausea and intractable vomiting. Patient was found to be in UTI and is currently getting treatment with IV antibiotics. She denied any complaints of chest pain, shortness of breath, fever, chills. Nephrology was consulted for BENJAMÍN Patient seen and examined in the ER Mentions no active complaints apart from mild abdominal pain Past medical history Legal blindness Diabetes mellitus Hypertension CKD Past surgical history Eye surgery Social history Patient denied smoking, marijuana, alcohol intake Past Medical History As described in the HPI Past Surgical History As described in the HPI Allergies: Coded Allergies: NO KNOWN ALLERGIES (Unverified , 11/03/24) Home Meds Active Scripts Levofloxacin Hemihydrate (LEVAQUIN 500 MG) 500 Mg Tab, 1 TAB PO DAILY, #7 TAB Prov:ESTHELA LR MD 11/05/24 Current Medications Current Medications Medications (Trade) Dose Ordered Sig/Cristiana Route PRN Reason Start Time Stop Time Status Last Admin Diagnostic Test (Pha) (Accu-Chek Comfort Curve T) 1 strip IQ4HR 11/04/24 00:00 11/04/24 16:16 Insulin Human Regular (InsuLIN R) IQ4HR SC 11/04/24 00:00 11/04/24 16:20 Dextrose 50 ml UD PRN IV Blood Sugar LESS THAN 60 11/03/24 22:30 Sodium Chloride 1,000 ml @ 60 mls/hr [id number] IV 11/03/24 22:30 11/04/24 10:44 DC Acetaminophen/ Hydrocodone Bitart (Ridge 5/325MG Tab) 1 tab Q4HP PRN PO MODERATE PAIN (4-6 PAIN SCALE) 11/03/24 22:30 Ondansetron HCl (Zofran) 4 mg Q4HP PRN IV NAUSEA / VOMITING 11/03/24 22:30 11/04/24 13:29 Docusate Sodium (Colace Capsule) 100 mg BIDPRN PRN PO FOR CONSTIPATION 11/03/24 22:30 Acetaminophen (Tylenol Tablet) 650 mg Q6HP PRN PO PAIN SCALE 1-3 OR TEMP>100.4 11/03/24 22:30 Nitroglycerin (Ntrostat Sublingual) 0.4 mg Q5MINP PRN SL FOR CHEST PAIN 11/03/24 23:45 Morphine Sulfate 2 mg Q30M PRN IV FOR CHEST PAIN 11/03/24 23:45 11/04/24 04:47 Ceftriaxone Sodium 50 ml @ 100 mls/hr DAILY@09 IV 11/05/24 09:00 Sodium Chloride 1,000 ml @ 60 mls/hr [id number] IV 11/04/24 10:45 11/04/24 15:01 DC 11/04/24 10:49 Sodium Chloride 1,000 ml @ 75 mls/hr [id number] IV 11/04/24 15:00 11/04/24 15:20 Review of Systems As described in the HPI Vital Signs Vital Signs Date Time Temp Pulse Resp B/P (MAP) Pulse Ox O2 Delivery O2 Flow Rate FiO2 11/04/24 18:04 89 16 104/64 (77) 95 11/04/24 08:05 Room Air* 0 21 11/03/24 18:41 97.5 97.5 Physical Exam Examination General Appearance: Alert, Oriented X3, Cooperative, No acute distress HEENT: EOMI Respiratory: Clear to auscultation, Normal air movement Cardiovascular: Regular rate, Normal S1, Normal S2 Abdominal: Normal bowel sounds Extremities: No cyanosis, No edema, Normal pulses, No tenderness/swelling Skin: No rashes, No breakdown Neuro: Normal speech and tone Labs/Diagnostic Data Labs Test 11/04/24 16:16 11/04/24 04:53 11/04/24 04:33 11/03/24 22:25 Range/Units POC Glucose 172 H 70-106 mg/dl White Blood Count 10.6 # 4.4-10.8 10^3/uL Red Blood Count 3.89 L 4.0-5.20 10^6/uL Hemoglobin 12.3 12.2-16.2 g/dL Hematocrit 35.7 L 36.0-46.0 % Mean Corpuscular Volume 91.7 80.0-100.0 fL Mean Corpuscular Hemoglobin 31.7 28.0-32.0 pg Mean Corpuscular Hemoglobin Concent 34.6 32.0-36.0 g/dL Red Cell Distribution Width 12.8 11.8-14.3 % Platelet Count 156 140-450 10^3/uL Mean Platelet Volume 10.3 6.9-10.8 fL Neutrophils (%) (Auto) 70.2 37.0-80.0 % Lymphocytes (%) (Auto) 21.3 10.0-50.0 % Monocytes (%) (Auto) 6.3 0.0-12.0 % Eosinophils (%) (Auto) 1.8 0.0-7.0 % Basophils (%) (Auto) 0.4 0.0-2.0 % Neutrophils # (Auto) 7.4 1.6-8.6 10 ^3/uL Lymphocytes # (Auto) 2.3 0.4-5.4 10 ^3/uL Monocytes # (Auto) 0.7 0-1.3 10 ^3/uL Eosinophils # (Auto) 0.2 0-0.8 10 ^3/uL Basophils # (Auto) 0 0-0.2 10 ^3/uL Nucleated Red Blood Cells 0.0 % Hemoglobin A1c 11.5 H <5.7 % A1C Sodium Level 138 136-145 mmol/L Potassium Level 4.1 3.5-5.1 mmol/L Chloride Level 105 98-107 mmol/L Carbon Dioxide Level 21 20-31 mmol/L Anion Gap 12 5-15 Blood Urea Nitrogen 25 H 9-23 mg/dL Creatinine 1.43 H 0.550-1.02 mg/dL Glomerular Filtration Rate Calc 41 >90 mL/min BUN/Creatinine Ratio 17.5 10.0-20.0 Serum Glucose 187 H 74-106 mg/dL Calcium Level 8.8 8.7-10.4 mg/dL Total Bilirubin 0.6 0.2-1.0 mg/dL Aspartate Amino Transferase (AST) 525 H 13-40 U/L Alanine Aminotransferase (ALT) 187 H 7-40 U/L Alkaline Phosphatase 122 H 46-116 U/L Total Protein 7.2 5.7-8.2 g/dL Albumin 4.2 3.2-4.8 g/dL Lipase 51 12-53 U/L Lactic Acid Level 1.8 0.4-2.0 mmol/L Test 11/03/24 20:23 Range/Units Urine Color Light-yellow Yellow Urine Clarity Turbid H Clear Urine pH 5.0 5.0-9.0 Urine Specific [place] 1.015 1.001-1.035 Urine Protein 1+ H Negative Urine Ketones Negative Negative Urine Blood Trace H Negative /uL Urine Nitrite Negative Negative Urine Bilirubin Negative Negative Urine Urobilinogen Normal Negative mg/dL Urine Leukocyte Esterase 3+ Negative /uL Urine RBC 3 0 - 4 /hpf Urine Microscopic WBC 91 H 0-5 /HPF Urine Squamous Epithelial Cells Few <5 /hpf Urine Bacteria None seen None Seen /hpf Urine Hyaline Casts Few 0 - 2 /lpf Urine Mucus Few None Seen Urine Creatinine 126.17 H 30.0-125.0 mg/dL Urine Protein/Creatinine Ratio 0.50 Urine Sodium 36 L 40-220 mmol/L Urine Glucose 4+ H Normal mg/dL Urine Total Protein 63.7 H 1-14 mg/dL Assessment Assessment and plan # BENJAMÍN over CKD , hemodynamically mediated -serum creatinine improved from 1.[address] : No hydronephrosis. No nephroureterolithiasis. Benign-appearing cysts left posterior kidney measuring 1 cm # Benign appearing left kidney cyst # enteritis # transaminitis # UTI # diabetes mellitus type 2 Plan/Recommendation Plan Strict input and output Monitor kidney function and electrolytes Ordered urine studies including urine sodium, urine creatinine, protein to creatinine ratio We will order magnesium and phosphate alongside BMP for tomorrow morning Continue IV fluids at 75 cc/hour Patient needs tighter control of diabetes Outpatient follow up with Nephrology for further workup and management Case discussion with Dr Rubalcava Addendum Patient seen and examined, plan discussed with resident. Agree with above, we will follow closely Plan discussed with: Patient, Other KOSTA BISWAS Nov 04, 2024 18:54 HERMILA RUBALCAVA MD Nov 05, 2024 14:42
[2024-11-04 20:07] VITALS: PULSE 93; RESP 20; O2SAT 97
[2024-11-05] VITALS (9 sets, daily range): BP systolic 108–149; BP diastolic 62–85; PULSE 88–95; RESP 14–18; TEMP 97.4–98.8; O2SAT 90–97
[2024-11-05 07:20] LABS: Hematocrit 37.1 % (36.0-46.0); Hemoglobin 12.8 g/dL (12.2-16.2); Mean Corpuscular Hemoglobin 31.5 pg (28.0-32.0); Mean Corpuscular Volume 91.1 fL (80.0-100.0); Nucleated Red Blood Cells % 0.2 %
[2024-11-05 07:29] LABS: Albumin 4.0 g/dL (3.2-4.8); Anion Gap 9 (5-15); BUN/Creatinine Ratio 13.3 (10.0-20.0); Bilirubin, Total 0.6 mg/dL (0.2-1.0); Blood Urea Nitrogen 15 mg/dL (9-23); Calcium 9.3 mg/dL (8.7-10.4); Carbon Dioxide 25 mmol/L (20-31); Chloride 105 mmol/L (98-107); Magnesium 2.3 mg/dL (1.6-2.6); Potassium 4.6 mmol/L (3.5-5.1); Sodium 139 mmol/L (136-145); Total Protein 7.1 g/dL (5.7-8.2)
[2024-11-05 07:31] LABS: Alanine Aminotransferase 323 U/L (7-40); Alkaline Phosphatase 134 U/L (46-116); Glucose 119 mg/dL (74-106)
--- NOTE | 2024-11-05 10:26 | DVHPN2 ---
Subjective The patient is seen and examined at bedside. No complaint today. Feeling better. Reviewed: Care Plan Changes from previous H/P or p: No Changes Eyes: No Pain, No Vision change, No Conjunctivae inflammation, No Eyelid inflammation, No Other, No Redness ENT: No Ear pain, No Ear discharge, No Nose pain, No Nose discharge, No Nose congestion, No Mouth pain, No Mouth swelling, No Throat pain, No Throat swelling, No Other Cardiovascular: No Chest Pain, No Palpitations, No Orthopnea, No Paroxysmal Noc. Dyspnea, No Edema, No Lt Headedness, No Other Respiratory: No Cough, No Dry, No Shortness of breath, No SOB with excertion, No Wheezing, No Hemoptysis, No Pleuritic Pain, No Sputum, No Other Gastrointestinal: Nausea, Vomiting, Abdominal Pain; No Diarrhea, No Constipation, No Melena, No Hematochezia; Other (Poor appetite) Genitourinary: No Dysuria, No Frequency, No Incontinence, No Hematuria, No Retention, No Other Musculoskeletal: No other, No neck pain, No shoulder pain, No arm pain, No back pain, No hand pain, No leg pain, No foot pain Skin: No Rash, No Lesions, No Jaundice, No Bruising, No Other Objective Vitals Vital Signs Date Time Temp Pulse Resp B/P (MAP) Pulse Ox O2 Delivery O2 Flow Rate FiO2 11/05/24 09:26 97.4 88 14 110/62 (78) 96 97.4 11/05/24 00:14 Room Air* 0 21 Intake/Output Intake and Output 11/05/24 07:00 Intake Total 590 ml Balance 590 ml Intake Oral 200 ml IV Total 390 ml # Voids 1 General Appearance: Alert, Oriented X3, Cooperative HEENT: Atraumatic, PERRLA, EOMI, Mucous membr. moist/pink Neck: Supple Lungs: Clear to auscultation, Normal air movement Cardiovascular: Regular rate, Normal S1, Normal S2, No murmurs, Gallops, Rubs Abdomen: Normal bowel sounds, Soft, No tenderness Neuro: Cranial nerves 3-12 NL Psych/Mental Status: Mental status NL Medications Current Medications Medications Dose Ordered Sig/Cristiana Route Start Time Stop Time Status Last Admin Dose Admin Diagnostic Test (Pha) 1 strip IQ4HR 11/04/24 00:00 11/05/24 09:50 1 STRIP Insulin Human Regular IQ4HR SC 11/04/24 00:00 11/05/24 04:00 2 UNITS Dextrose 50 ml UD PRN IV 11/03/24 22:30 Acetaminophen/ Hydrocodone Bitart 1 tab Q4HP PRN PO 11/03/24 22:30 Ondansetron HCl 4 mg Q4HP PRN IV 11/03/24 22:30 11/04/24 13:29 4 MG Docusate Sodium 100 mg BIDPRN PRN PO 11/03/24 22:30 Acetaminophen 650 mg Q6HP PRN PO 11/03/24 22:30 Nitroglycerin 0.4 mg Q5MINP PRN SL 11/03/24 23:45 Morphine Sulfate 2 mg Q30M PRN IV 11/03/24 23:45 11/04/24 04:47 2 MG Ceftriaxone Sodium 50 ml @ 100 mls/hr DAILY@09 IV 11/05/24 09:00 11/05/24 09:41 100 MLS/HR Sodium Chloride 1,000 ml @ 75 mls/hr [id number] IV 11/04/24 15:00 11/04/24 15:20 75 MLS/HR Laboratory Results Laboratory Tests 11/05/24 04:43 Chemistry Test 11/05/24 04:43 Albumin 4.0 g/dL (3.2-4.8) Calcium Level 9.3 mg/dL (8.7-10.4) Magnesium Level 2.3 mg/dL (1.6-2.6) Phosphorus Level 2.8 mg/dL (2.4-5.1) Total Protein 7.1 g/dL (5.7-8.2) LFT Test 11/05/24 04:43 Alanine Aminotransferase (ALT) 323 U/L (7-40) H Alkaline Phosphatase 134 U/L (46-116) H Aspartate Amino Transferase (AST) 213 U/L (13-40) H Total Bilirubin 0.6 mg/dL (0.2-1.0) Urinalysis Test 11/03/24 20:23 Urine Color Light-yellow (Yellow) Urine Clarity Turbid (Clear) H Urine pH 5.0 (5.0-9.0) Urine Specific [place] 1.015 (1.001-1.035) Urine Protein 1+ (Negative) H Urine Ketones Negative (Negative) Urine Blood Trace /uL (Negative) H Urine Nitrite Negative (Negative) Urine Bilirubin Negative (Negative) Urine Urobilinogen Normal mg/dL (Negative) Urine Leukocyte Esterase 3+ /uL (Negative) Urine RBC 3 /hpf (0 - 4) Urine Microscopic WBC 91 /HPF (0-5) H Urine Squamous Epithelial Cells Few /hpf (<5) Urine Bacteria None seen /hpf (None Seen) Urine Hyaline Casts Few /lpf (0 - 2) Urine Mucus Few (None Seen) Urine Creatinine 126.17 mg/dL (30.0-125.0) H Urine Protein/Creatinine Ratio 0.50 Urine Sodium 36 mmol/L (40-220) L Urine Glucose 4+ mg/dL (Normal) H Urine Total Protein 63.7 mg/dL (1-14) H Microbiology Microbiology Date/Time Source Procedure Growth Status 11/03/24 22:25 Blood Blood Culture - Preliminary NO GROWTH AFTER 24 HOURS OF INCUBATION. Resulted Labs and/or images reviewed: Labs reviewed by me Assessment/Plan Assessment/Plan Acute abdominal pain #Enteritis #UTI #Transaminitis #DM-2 #BENJAMÍN Continuing current management. I am discharge the patient home today. However patient required physical therapy because of deconditioning. Waiting for case liner to arrange Home health. Continuing IV antibiotic. Continuing with sliding scale insulin. Continuing to monitor kidney function. This medical document was created using an electronic medical record system with [employer] computerized dictation system. Although this document has been carefully reviewed, there may still be some phonetic and typographical errors. These areas are purely typographical due to imperfections of the software programs, and do not reflect any compromise in the patient's medical care. Plan discussed with: Patient Date of Service: Nov 05, 2024 Billing Provider: ESTHELA LR MD Common Visit Codes: [id number] INP/OBS CARE(HIGH) ESTHELA LR MD Nov 05, 2024 10:26
[2024-11-05 11:00] LABS: Hepatitis B Surface Antigen Negative (Negative); Hepatitis C Antibody Negative (Negative)
[2024-11-05] MEDS ORDERED: LEVO500T91 PO (11:24)
--- NOTE | 2024-11-05 11:26 | DVHDS2 ---
Discharge Summary Date of Admission Nov 03, 2024 at 23:37 Date of Discharge: Nov 05, 2024 Labs/Diagnostic Data: Laboratory Results Test 11/05/24 09:33 11/05/24 04:43 11/04/24 04:53 11/04/24 04:33 POC Glucose 304 mg/dl (70-106) White Blood Count 5.0 10^3/uL (4.4-10.8) Red Blood Count 4.07 10^6/uL (4.0-5.20) Hemoglobin 12.8 g/dL (12.2-16.2) Hematocrit 37.1 % (36.0-46.0) Mean Corpuscular Volume 91.1 fL (80.0-100.0) Mean Corpuscular Hemoglobin 31.5 pg (28.0-32.0) Mean Corpuscular Hemoglobin Concent 34.6 g/dL (32.0-36.0) Red Cell Distribution Width 13.1 % (11.8-14.3) Platelet Count 164 10^3/uL (140-450) Mean Platelet Volume 10.8 fL (6.9-10.8) Neutrophils (%) (Auto) 55.9 % (37.0-80.0) Lymphocytes (%) (Auto) 28.1 % (10.0-50.0) Monocytes (%) (Auto) 6.6 % (0.0-12.0) Eosinophils (%) (Auto) 8.1 % (0.0-7.0) Basophils (%) (Auto) 1.3 % (0.0-2.0) Neutrophils # (Auto) 2.8 10 ^3/uL (1.6-8.6) Lymphocytes # (Auto) 1.4 10 ^3/uL (0.4-5.4) Monocytes # (Auto) 0.3 10 ^3/uL (0-1.3) Eosinophils # (Auto) 0.4 10 ^3/uL (0-0.8) Basophils # (Auto) 0.1 10 ^3/uL (0-0.2) Nucleated Red Blood Cells 0.2 % Sodium Level 139 mmol/L (136-145) Potassium Level 4.6 mmol/L (3.5-5.1) Chloride Level 105 mmol/L (98-107) Carbon Dioxide Level 25 mmol/L (20-31) Anion Gap 9 (5-15) Blood Urea Nitrogen 15 mg/dL (9-23) Creatinine 1.13 mg/dL (0.550-1.02) Glomerular Filtration Rate Calc 55 mL/min (>90) BUN/Creatinine Ratio 13.3 (10.0-20.0) Serum Glucose 119 mg/dL (74-106) Calcium Level 9.3 mg/dL (8.7-10.4) Phosphorus Level 2.8 mg/dL (2.4-5.1) Magnesium Level 2.3 mg/dL (1.6-2.6) Total Bilirubin 0.6 mg/dL (0.2-1.0) Aspartate Amino Transferase (AST) 213 U/L (13-40) Alanine Aminotransferase (ALT) 323 U/L (7-40) Alkaline Phosphatase 134 U/L (46-116) Total Protein 7.1 g/dL (5.7-8.2) Albumin 4.0 g/dL (3.2-4.8) Hepatitis B Surface Antigen Negative (Negative) Hepatitis C Antibody Negative (Negative) Hemoglobin A1c 11.5 % A1C (<5.7) Lipase 51 U/L (12-53) Test 11/03/24 22:25 11/03/24 20:23 Lactic Acid Level 1.8 mmol/L (0.4-2.0) Urine Color Light-yellow (Yellow) Urine Clarity Turbid (Clear) Urine pH 5.0 (5.0-9.0) Urine Specific [place] 1.015 (1.001-1.035) Urine Protein 1+ (Negative) Urine Ketones Negative (Negative) Urine Blood Trace /uL (Negative) Urine Nitrite Negative (Negative) Urine Bilirubin Negative (Negative) Urine Urobilinogen Normal mg/dL (Negative) Urine Leukocyte Esterase 3+ /uL (Negative) Urine RBC 3 /hpf (0 - 4) Urine Microscopic WBC 91 /HPF (0-5) Urine Squamous Epithelial Cells Few /hpf (<5) Urine Bacteria None seen /hpf (None Seen) Urine Hyaline Casts Few /lpf (0 - 2) Urine Mucus Few (None Seen) Urine Creatinine 126.17 mg/dL (30.0-125.0) Urine Protein/Creatinine Ratio 0.50 Urine Sodium 36 mmol/L (40-220) Urine Glucose 4+ mg/dL (Normal) Urine Total Protein 63.7 mg/dL (1-14) Other Laboratory Tests 11/05/24 04:43 Final Diagnosis/Problems List uti CYSTITIS Discharge Disposition: Home Discharge Instruct/Medications Diet: Regular Activity: No Restrictions, As Tolerated Follow Up/Referral: PCP 1-2 WEEKS UROLOGY OUTPATIENT FOR POSSIBLE CYSTOSCOPY TO EVALUATE BLADDER THICKENING Medications: LEVAQUIN 500MG DAILY Scheduled Acetazolamide (Acetazolamide), 500 MG PO TID, (Reported) Dicyclomine Hcl (Bentyl Capsule), 2 CAP PO TID, (Reported) Empagliflozin (Jardiance), 25 MG PO DAILY, (Reported) Insulin Degludec (Tresiba), 36 UNIT SC HS, (Reported) Latanoprost (Latanoprost), 1 DROP EACHEYE QPM, (Reported) Levofloxacin Hemihydrate (Levaquin 500 Mg), 1 TAB PO DAILY Lisinopril (Lisinopril), 40 MG PO DAILY, (Reported) Discharge Statement: "Patient was advised to return to the ER or call 911 if any headaches, dizziness, shortness of breath, chest pain, abdominal pain, bleeding, fevers, or worsening of medical condition. Patient was counseled about treatment plan, medications, possible side effects, patientverbalized understanding. All questions were answered to the best of my ability. This discharge took greater then 30 minutes in planning, reviewing documentation, counseling the patient, and discussing with other team members." ASSESSMENT ASSESSMENT Assessment uti CYSTITIS ESTHELA LR MD Nov 05, 2024 11:26
--- NOTE | 2024-11-05 14:44 | DVHPN2 ---
Progress Note Date Seen: Nov 05, 2024 Medical Necessity Reason Pt with a Central, PICC or Fol: No Subjective Patient reports: No new complaints Review of Systems: Deferred Objective vital signs Vital Sign Date Time Temp Pulse Resp B/P (MAP) Pulse Ox O2 Delivery O2 Flow Rate FiO2 11/05/24 12:56 98.8 95 18 118/81 (93) 97 98.8 11/05/24 07:30 Room Air* 0 21 Total Intake and Output 11/04/24 11/04/24 11/05/24 15:00 23:00 07:00 Intake Total 240 ml 150 ml 200 ml Balance 240 ml 150 ml 200 ml medications Current Medications Medications Dose Ordered Sig/Cristiana Route Start Time Stop Time Status Last Admin Dose Admin Diagnostic Test (Pha) 1 strip IQ4HR 11/04/24 00:00 11/05/24 12:33 1 STRIP Insulin Human Regular IQ4HR SC 11/04/24 00:00 11/05/24 12:32 12 UNITS Dextrose 50 ml UD PRN IV 11/03/24 22:30 Acetaminophen/ Hydrocodone Bitart 1 tab Q4HP PRN PO 11/03/24 22:30 Ondansetron HCl 4 mg Q4HP PRN IV 11/03/24 22:30 11/04/24 13:29 4 MG Docusate Sodium 100 mg BIDPRN PRN PO 11/03/24 22:30 Acetaminophen 650 mg Q6HP PRN PO 11/03/24 22:30 Nitroglycerin 0.4 mg Q5MINP PRN SL 11/03/24 23:45 Morphine Sulfate 2 mg Q30M PRN IV 11/03/24 23:45 11/04/24 04:47 2 MG Ceftriaxone Sodium 50 ml @ 100 mls/hr DAILY@09 IV 11/05/24 09:00 11/05/24 09:41 100 MLS/HR Sodium Chloride 1,000 ml @ 75 mls/hr [id number] IV 11/04/24 15:00 11/04/24 15:20 75 MLS/HR laboratory and microbiology Laboratory Tests 11/05/24 04:43 Test 11/05/24 04:43 Range/Units Serum Glucose 119 H 74-106 mg/dL Microbiology Date/Time Source Procedure Growth Status 11/03/24 22:25 Blood Blood Culture - Preliminary NO GROWTH AFTER 24 HOURS OF INCUBATION. Resulted Problem List/Assessment/Plan Problem List/Assessment/Plan # BENJAMÍN over CKD , hemodynamically mediated Abd CT : No hydronephrosis. No nephroureterolithiasis. Benign-appearing cysts left posterior kidney measuring 1 cm # Benign appearing left kidney cyst # enteritis # transaminitis # UTI # diabetes mellitus type 2 Plan/Recommendation Renal function improved after IV fluids Continue IV fluids No baseline renal function available Plan discussed with: Patient HERMILA PIPER MD Nov 05, 2024 14:44
[2024-11-06] VITALS (10 sets, daily range): BP systolic 126–153; BP diastolic 73–88; PULSE 89–95; RESP 14–20; TEMP 97.8–98.6; O2SAT 94–98
[2024-11-06] MEDS ORDERED: EMPA1TAB3 PO (03:04)
[2024-11-06] MEDS ORDERED: ACET250T20 PO (03:04)
[2024-11-06] MEDS ORDERED: LATA0.008 EACHEYE (03:04)
[2024-11-06] MEDS ORDERED: LISI40TA16 PO (03:04)
[2024-11-06] MEDS ORDERED: INSU100I33 SC (03:04)
[2024-11-06] MEDS ORDERED: DICY10CA PO (03:04)
--- NOTE | 2024-11-06 08:53 | DVHPN2 ---
Progress Note Date Seen: Nov 06, 2024 Medical Necessity Reason Pt with a Central, PICC or Fol: No Subjective Patient reports: No new complaints Review of Systems: HEENT:Normal, CVS:Normal, RESPIRATORY:Normal, GI:Normal, :Normal, MSK:Normal, NEURO:Normal Objective vital signs Vital Sign Date Time Temp Pulse Resp B/P (MAP) Pulse Ox O2 Delivery O2 Flow Rate FiO2 11/06/24 07:30 95 18 98 Room Air* 0 21 11/06/24 05:00 98.6 153/87 (109) 98.6 Total Intake and Output 11/05/24 11/05/24 11/06/24 15:00 23:00 07:00 Intake Total 280 ml 580 ml 600 ml Balance 280 ml 580 ml 600 ml medications Current Medications Medications Dose Ordered Sig/Cristiana Route Start Time Stop Time Status Last Admin Dose Admin Diagnostic Test (Pha) 1 strip IQ4HR 11/04/24 00:00 11/06/24 04:03 1 STRIP Insulin Human Regular IQ4HR SC 11/04/24 00:00 11/06/24 03:58 2 UNITS Dextrose 50 ml UD PRN IV 11/03/24 22:30 Acetaminophen/ Hydrocodone Bitart 1 tab Q4HP PRN PO 11/03/24 22:30 Ondansetron HCl 4 mg Q4HP PRN IV 11/03/24 22:30 11/04/24 13:29 4 MG Docusate Sodium 100 mg BIDPRN PRN PO 11/03/24 22:30 Acetaminophen 650 mg Q6HP PRN PO 11/03/24 22:30 Nitroglycerin 0.4 mg Q5MINP PRN SL 11/03/24 23:45 Morphine Sulfate 2 mg Q30M PRN IV 11/03/24 23:45 11/04/24 04:47 2 MG Ceftriaxone Sodium 50 ml @ 100 mls/hr DAILY@09 IV 11/05/24 09:00 11/05/24 09:41 100 MLS/HR Sodium Chloride 1,000 ml @ 75 mls/hr [id number] IV 11/04/24 15:00 11/06/24 06:35 75 MLS/HR Examination: GENERAL:Normal, HEENT:Normal, NECK:Normal, LUNGS:Normal, CVS:Normal, ABDOMEN:Normal, MSK:Normal, SKIN:Normal, NEURO:Normal, :Normal laboratory and microbiology Laboratory Tests 11/05/24 04:43 Test 11/05/24 04:43 Range/Units Serum Glucose 119 H 74-106 mg/dL Microbiology Date/Time Source Procedure Growth Status 11/03/24 22:25 Blood Blood Culture - Preliminary NO GROWTH AFTER 48 HOURS OF INCUBATION. Resulted Problem List/Assessment/Plan Problem List/Assessment/Plan # BENJAMÍN over CKD , hemodynamically mediated Abd CT : No hydronephrosis. No nephroureterolithiasis. Benign-appearing cysts left posterior kidney measuring 1 cm # Benign appearing left kidney cyst # enteritis # transaminitis # UTI # diabetes mellitus type 2 Plan/Recommendation Hold IV fluids Renal function better Labs today pending Plan discussed with: Patient My Orders My Orders Orders - HERMILA PIPER MD Procedure Category Date Status Time Basic Metabolic Panel LAB 11/06/24 Verified 08:52 HERMILA PIPER MD Nov 06, 2024 08:53
[2024-11-06 10:05] LABS: Chloride 105 mmol/L (98-107); Potassium 4.9 mmol/L (3.5-5.1); Sodium 139 mmol/L (136-145)
[2024-11-06 10:06] LABS: Anion Gap 8 (5-15); Calcium 9.0 mg/dL (8.7-10.4); Carbon Dioxide 26 mmol/L (20-31)
[2024-11-06 10:11] LABS: BUN/Creatinine Ratio 8.4 (10.0-20.0); Blood Urea Nitrogen 9 mg/dL (9-23)
[2024-11-06 10:13] LABS: Glucose 271 mg/dL (74-106)
--- NOTE | 2024-11-06 11:22 | DVHPN2 ---
Subjective The patient is seen and examined at bedside. No complaint today. Feeling better. Discharge pending due to waiting for home health for PT Reviewed: Care Plan Changes from previous H/P or p: No Changes Eyes: No Pain, No Vision change, No Conjunctivae inflammation, No Eyelid inflammation, No Other, No Redness ENT: No Ear pain, No Ear discharge, No Nose pain, No Nose discharge, No Nose congestion, No Mouth pain, No Mouth swelling, No Throat pain, No Throat swelling, No Other Cardiovascular: No Chest Pain, No Palpitations, No Orthopnea, No Paroxysmal Noc. Dyspnea, No Edema, No Lt Headedness, No Other Respiratory: No Cough, No Dry, No Shortness of breath, No SOB with excertion, No Wheezing, No Hemoptysis, No Pleuritic Pain, No Sputum, No Other Gastrointestinal: Nausea, Vomiting, Abdominal Pain; No Diarrhea, No Constipation, No Melena, No Hematochezia; Other (Poor appetite) Genitourinary: No Dysuria, No Frequency, No Incontinence, No Hematuria, No Retention, No Other Musculoskeletal: No other, No neck pain, No shoulder pain, No arm pain, No back pain, No hand pain, No leg pain, No foot pain Skin: No Rash, No Lesions, No Jaundice, No Bruising, No Other Objective Vitals Vital Signs Date Time Temp Pulse Resp B/P (MAP) Pulse Ox O2 Delivery O2 Flow Rate FiO2 11/06/24 09:00 98.0 91 16 152/86 (108) 96 98.0 11/06/24 07:30 Room Air* 0 21 Intake/Output Intake and Output 11/06/24 07:00 Intake Total 1460 ml Balance 1460 ml Intake Oral 1410 ml IV Total 50 ml # Voids 5 General Appearance: Alert, Oriented X3, Cooperative HEENT: Atraumatic, PERRLA, EOMI, Mucous membr. moist/pink Neck: Supple Lungs: Clear to auscultation, Normal air movement Cardiovascular: Regular rate, Normal S1, Normal S2, No murmurs, Gallops, Rubs Abdomen: Normal bowel sounds, Soft, No tenderness Neuro: Cranial nerves 3-12 NL Psych/Mental Status: Mental status NL Medications Current Medications Medications Dose Ordered Sig/Cristiana Route Start Time Stop Time Status Last Admin Dose Admin Diagnostic Test (Pha) 1 strip IQ4HR 11/04/24 00:00 11/06/24 09:15 1 STRIP Insulin Human Regular IQ4HR SC 11/04/24 00:00 11/06/24 09:22 9 UNITS Dextrose 50 ml UD PRN IV 11/03/24 22:30 Acetaminophen/ Hydrocodone Bitart 1 tab Q4HP PRN PO 11/03/24 22:30 Ondansetron HCl 4 mg Q4HP PRN IV 11/03/24 22:30 11/04/24 13:29 4 MG Docusate Sodium 100 mg BIDPRN PRN PO 11/03/24 22:30 Acetaminophen 650 mg Q6HP PRN PO 11/03/24 22:30 Nitroglycerin 0.4 mg Q5MINP PRN SL 11/03/24 23:45 Morphine Sulfate 2 mg Q30M PRN IV 11/03/24 23:45 11/04/24 04:47 2 MG Ceftriaxone Sodium 50 ml @ 100 mls/hr DAILY@09 IV 11/05/24 09:00 11/06/24 09:15 100 MLS/HR Laboratory Results Laboratory Tests 11/05/24 04:43 11/06/24 09:22 Chemistry Test 11/06/24 09:22 Calcium Level 9.0 mg/dL (8.7-10.4) Urinalysis Test 11/03/24 20:23 Urine Color Light-yellow (Yellow) Urine Clarity Turbid (Clear) H Urine pH 5.0 (5.0-9.0) Urine Specific [place] 1.015 (1.001-1.035) Urine Protein 1+ (Negative) H Urine Ketones Negative (Negative) Urine Blood Trace /uL (Negative) H Urine Nitrite Negative (Negative) Urine Bilirubin Negative (Negative) Urine Urobilinogen Normal mg/dL (Negative) Urine Leukocyte Esterase 3+ /uL (Negative) Urine RBC 3 /hpf (0 - 4) Urine Microscopic WBC 91 /HPF (0-5) H Urine Squamous Epithelial Cells Few /hpf (<5) Urine Bacteria None seen /hpf (None Seen) Urine Hyaline Casts Few /lpf (0 - 2) Urine Mucus Few (None Seen) Urine Creatinine 126.17 mg/dL (30.0-125.0) H Urine Protein/Creatinine Ratio 0.50 Urine Sodium 36 mmol/L (40-220) L Urine Glucose 4+ mg/dL (Normal) H Urine Total Protein 63.7 mg/dL (1-14) H Microbiology Microbiology Date/Time Source Procedure Growth Status 11/03/24 22:25 Blood Blood Culture - Preliminary NO GROWTH AFTER 48 HOURS OF INCUBATION. Resulted Labs and/or images reviewed: Labs reviewed by me Assessment/Plan Assessment/Plan Acute abdominal pain #Enteritis #UTI #Transaminitis #DM-2 #BENJAMÍN Continuing current management. I am discharge the patient home today. However patient required physical therapy because of deconditioning. Waiting for protective services case worker to arrange Home health. Continuing IV antibiotic. Continuing with sliding scale insulin. Continuing to monitor kidney function. This medical document was created using an electronic medical record system with [employer] direct computerized dictation system. Although this document has been carefully reviewed, there may still be some phonetic and typographical errors. These areas are purely typographical due to imperfections of the software programs, and do not reflect any compromise in the patient's medical care. Plan discussed with: Patient My Orders Orders - ESTHELA LR MD Procedure Category Date Status Time Discharge DISCHARGE 11/05/24 Transmitted 11:24 Pt Request For Service PT 11/05/24 Logged 17:13 Refer To Home Health [facility] [place] 11/05/24 In Process 17:20 * Overlock Operator CONS 11/05/24 Transmitted Consult Date of Service: Nov 06, 2024 Billing Provider: ESTHELA LR MD Common Visit Codes: [id number] INP/OBS CARE(HIGH) ESTHELA LR MD Nov 06, 2024 11:22
[2024-11-06] MEDS: ACCU-CHEK COMFORT CURVE STRIP VI SCH (17:53)
[2024-11-06] MEDS: HYDROcodone-ACET 5/325MG TAB PO PRN (18:10)
[2024-11-06] MEDS: InsuLIN REG 1unit/0.01ml Soln (100units/ml) SC SCH (22:00)
[2024-11-07 01:00] VITALS: BP 127/70; PULSE 88; RESP 18; TEMP 98.1; O2SAT 99
[2024-11-07 05:00] VITALS: BP 131/78; PULSE 90; RESP 18; TEMP 98.4; O2SAT 97
[2024-11-07 07:30] VITALS: PULSE 90; RESP 18; O2SAT 97
[2024-11-07 09:00] VITALS: BP 144/76; PULSE 91; RESP 18; TEMP 98; O2SAT 95
--- NOTE | 2024-11-07 12:45 | DVHPN2 ---
Subjective The patient is seen and examined at bedside. No complaint today. Feeling better. Discharge pending due to waiting for home health for PT Reviewed: Care Plan Eyes: No Pain, No Vision change, No Conjunctivae inflammation, No Eyelid inflammation, No Other, No Redness ENT: No Ear pain, No Ear discharge, No Nose pain, No Nose discharge, No Nose congestion, No Mouth pain, No Mouth swelling, No Throat pain, No Throat swelling, No Other Cardiovascular: No Chest Pain, No Palpitations, No Orthopnea, No Paroxysmal Noc. Dyspnea, No Edema, No Lt Headedness, No Other Respiratory: No Cough, No Dry, No Shortness of breath, No SOB with excertion, No Wheezing, No Hemoptysis, No Pleuritic Pain, No Sputum, No Other Gastrointestinal: Nausea, Vomiting, Abdominal Pain; No Diarrhea, No Constipation, No Melena, No Hematochezia; Other (Poor appetite) Genitourinary: No Dysuria, No Frequency, No Incontinence, No Hematuria, No Retention, No Other Musculoskeletal: No other, No neck pain, No shoulder pain, No arm pain, No back pain, No hand pain, No leg pain, No foot pain Skin: No Rash, No Lesions, No Jaundice, No Bruising, No Other Objective Vitals Vital Signs Date Time Temp Pulse Resp B/P (MAP) Pulse Ox O2 Delivery O2 Flow Rate FiO2 11/07/24 09:00 98.0 91 18 144/76 (98) 95 98.0 11/07/24 07:30 Room Air* 0 21 Intake/Output Intake and Output 11/07/24 07:00 Intake Total 3300 ml Balance 3300 ml Intake Oral 3250 ml IV Total 50 ml # Voids 5 General Appearance: Alert, Oriented X3, Cooperative HEENT: Atraumatic, PERRLA, EOMI, Mucous membr. moist/pink Neck: Supple Lungs: Clear to auscultation, Normal air movement Cardiovascular: Regular rate, Normal S1, Normal S2, No murmurs, Gallops, Rubs Abdomen: Normal bowel sounds, Soft, No tenderness Neuro: Cranial nerves 3-12 NL Psych/Mental Status: Mental status NL Medications Current Medications Medications Dose Ordered Sig/Cristiana Route Start Time Stop Time Status Last Admin Dose Admin Dextrose 50 ml UD PRN IV 11/03/24 22:30 Acetaminophen/ Hydrocodone Bitart 1 tab Q4HP PRN PO 11/03/24 22:30 11/06/24 18:10 1 TAB Ondansetron HCl 4 mg Q4HP PRN IV 11/03/24 22:30 11/04/24 13:29 4 MG Docusate Sodium 100 mg BIDPRN PRN PO 11/03/24 22:30 Acetaminophen 650 mg Q6HP PRN PO 11/03/24 22:30 Nitroglycerin 0.4 mg Q5MINP PRN SL 11/03/24 23:45 Morphine Sulfate 2 mg Q30M PRN IV 11/03/24 23:45 11/04/24 04:47 2 MG Ceftriaxone Sodium 50 ml @ 100 mls/hr DAILY@09 IV 11/05/24 09:00 11/07/24 09:20 100 MLS/HR Diagnostic Test (Pha) 1 strip ACHS 11/06/24 17:30 11/07/24 09:20 1 STRIP Insulin Human Regular ACHS SC 11/06/24 22:00 11/07/24 10:46 9 UNITS Laboratory Results Laboratory Tests 11/05/24 04:43 11/06/24 09:22 Urinalysis Test 11/03/24 20:23 Urine Color Light-yellow (Yellow) Urine Clarity Turbid (Clear) H Urine pH 5.0 (5.0-9.0) Urine Specific [place] 1.015 (1.001-1.035) Urine Protein 1+ (Negative) H Urine Ketones Negative (Negative) Urine Blood Trace /uL (Negative) H Urine Nitrite Negative (Negative) Urine Bilirubin Negative (Negative) Urine Urobilinogen Normal mg/dL (Negative) Urine Leukocyte Esterase 3+ /uL (Negative) Urine RBC 3 /hpf (0 - 4) Urine Microscopic WBC 91 /HPF (0-5) H Urine Squamous Epithelial Cells Few /hpf (<5) Urine Bacteria None seen /hpf (None Seen) Urine Hyaline Casts Few /lpf (0 - 2) Urine Mucus Few (None Seen) Urine Creatinine 126.17 mg/dL (30.0-125.0) H Urine Protein/Creatinine Ratio 0.50 Urine Sodium 36 mmol/L (40-220) L Urine Glucose 4+ mg/dL (Normal) H Urine Total Protein 63.7 mg/dL (1-14) H Microbiology Microbiology Date/Time Source Procedure Growth Status 11/03/24 22:25 Blood Blood Culture - Preliminary NO GROWTH AFTER 72 HOURS OF INCUBATION. Resulted Assessment/Plan Assessment/Plan Acute abdominal pain #Enteritis #UTI #Transaminitis #DM-2 #BENJAMÍN Continuing current management. I am discharge the patient home today. However patient required physical therapy because of deconditioning. Waiting for showcase maker to arrange Home health. Continuing IV antibiotic. Continuing with sliding scale insulin. Continuing to monitor kidney function. This medical document was created using an electronic medical record system with [employer] direct computerized dictation system. Although this document has been carefully reviewed, there may still be some phonetic and typographical errors. These areas are purely typographical due to imperfections of the software programs, and do not reflect any compromise in the patient's medical care. My Orders Orders - ESTHELA LR MD Procedure Category Date Status Time Glucose Blood PHA 11/06/24 In Process (Accu-Chek Comfort 17:30 Discharge DISCHARGE 11/07/24 Transmitted 11:24 * Title I Math Tutor CONS 11/07/24 Transmitted Consult 11:08 ESTHELA LR MD Nov 07, 2024 12:45
[2024-11-07 13:00] VITALS: BP 122/63; PULSE 88; RESP 18; TEMP 97.9; O2SAT 95
[2024-11-07] MEDS: DOCUSATE SOD 100 MG CAP PO PRN (13:45)
--- NOTE | 2024-11-07 13:47 | DVHPN2 ---
Progress Note Date Seen: Nov 07, 2024 Resident Creating Document: KOSTA BISWAS RESIDENT Medical Necessity Reason Pt with a Central, PICC or Fol: No Subjective Review of Systems History of Present Illness 64-year-old female with past medical history of legal blindness, diabetes mellitus of 29 years, hypertension, CKD presented with complaints of right lower quadrant abdominal pain for last three days. She also mentioned associated nausea and intractable vomiting. Patient was found to be in UTI and is currently getting treatment with IV antibiotics. She denied any complaints of chest pain, shortness of breath, fever, chills. Nephrology was consulted for BENJAMÍN Patient seen and examined in the ER Mentions no active complaints apart from mild abdominal pain Past medical history Legal blindness Diabetes mellitus Hypertension CKD Past surgical history Eye surgery Social history Patient denied smoking, marijuana, alcohol intake Interval events 11/07/2024 Mentioned no complaint Objective vital signs Vital Sign Date Time Temp Pulse Resp B/P (MAP) Pulse Ox O2 Delivery O2 Flow Rate FiO2 11/07/24 13:00 97.9 88 18 122/63 (82) 95 97.9 11/07/24 07:30 Room Air* 0 21 Total Intake and Output 11/06/24 11/06/24 11/07/24 15:00 23:00 07:00 Intake Total 1550 ml 950 ml 800 ml Balance 1550 ml 950 ml 800 ml medications Current Medications Medications Dose Ordered Sig/Cristiana Route Start Time Stop Time Status Last Admin Dose Admin Dextrose 50 ml UD PRN IV 11/03/24 22:30 Acetaminophen/ Hydrocodone Bitart 1 tab Q4HP PRN PO 11/03/24 22:30 11/06/24 18:10 1 TAB Ondansetron HCl 4 mg Q4HP PRN IV 11/03/24 22:30 11/04/24 13:29 4 MG Docusate Sodium 100 mg BIDPRN PRN PO 11/03/24 22:30 Acetaminophen 650 mg Q6HP PRN PO 11/03/24 22:30 Nitroglycerin 0.4 mg Q5MINP PRN SL 11/03/24 23:45 Morphine Sulfate 2 mg Q30M PRN IV 11/03/24 23:45 11/04/24 04:47 2 MG Ceftriaxone Sodium 50 ml @ 100 mls/hr DAILY@09 IV 11/05/24 09:00 11/07/24 09:20 100 MLS/HR Diagnostic Test (Pha) 1 strip ACHS 11/06/24 17:30 11/07/24 09:20 1 STRIP Insulin Human Regular ACHS SC 11/06/24 22:00 11/07/24 10:46 9 UNITS Examination Examination General Appearance: Alert, Oriented X3, Cooperative, No acute distress HEENT: EOMI Respiratory: Clear to auscultation, Normal air movement Cardiovascular: Regular rate, Normal S1, Normal S2 Abdominal: Normal bowel sounds Extremities: No cyanosis, No edema, Normal pulses, No tenderness/swelling Skin: No rashes, No breakdown Neuro: Normal speech and tone laboratory and microbiology Laboratory Tests 11/06/24 09:22 11/05/24 04:43 Test 11/06/24 09:22 Range/Units Serum Glucose 271 H 74-106 mg/dL Microbiology Date/Time Source Procedure Growth Status 11/03/24 22:25 Blood Blood Culture - Preliminary NO GROWTH AFTER 72 HOURS OF INCUBATION. Resulted Labs and/or images reviewed: Labs reviewed by me, Image(s) reviewed by me Problem List/Assessment/Plan Problem List/Assessment/Plan Assessment # BENJAMÍN over CKD , hemodynamically mediated -serum creatinine 1.73,1.43, 1.13, 1.07 Significant improvement in kidney function Abd CT : No hydronephrosis. No nephroureterolithiasis. Benign-appearing cysts left posterior kidney measuring 1 cm # Proteinuria due to CKD # Benign appearing left kidney cyst # enteritis # transaminitis # UTI # diabetes mellitus type 2 Plan Strict input and output Monitor kidney function and electrolytes Significant improvement in kidney function IV fluids were discontinued Patient needs tighter control of diabetes Consider outpatient follow up with Urology (CT pelvis shows Circumferential bladder wall thickening) We will sign off from this case as of now Currently consult again if needed Outpatient follow up with Nephrology for further workup and management Case discussion with Dr Rubalcava Addendum Patient seen and examined, plan discussed with resident. Agree with above, we will sign off the case please reconsult if needed Plan discussed with: Patient, Other KOSTA BISWAS RESIDENT Nov 07, 2024 13:47 HERMILA RUBALCAVA MD Nov 07, 2024 14:12
--- NOTE | 2024-11-07 17:47 | DVHDS2 ---
Discharge Summary Date of Admission Nov 03, 2024 at 23:37 Date of Discharge: Nov 07, 2024 Admitting Diagnosis #Acute abdominal pain #Enteritis #UTI #Transaminitis #DM-2 #BENJAMÍN Labs/Diagnostic Data: Laboratory Results Test 11/07/24 09:19 11/06/24 09:22 11/05/24 04:43 11/04/24 04:53 POC Glucose 258 mg/dl (70-106) Sodium Level 139 mmol/L (136-145) Potassium Level 4.9 mmol/L (3.5-5.1) Chloride Level 105 mmol/L (98-107) Carbon Dioxide Level 26 mmol/L (20-31) Anion Gap 8 (5-15) Blood Urea Nitrogen 9 mg/dL (9-23) Creatinine 1.07 mg/dL (0.550-1.02) Glomerular Filtration Rate Calc 58 mL/min (>90) BUN/Creatinine Ratio 8.4 (10.0-20.0) Serum Glucose 271 mg/dL (74-106) Calcium Level 9.0 mg/dL (8.7-10.4) White Blood Count 5.0 10^3/uL (4.4-10.8) Red Blood Count 4.07 10^6/uL (4.0-5.20) Hemoglobin 12.8 g/dL (12.2-16.2) Hematocrit 37.1 % (36.0-46.0) Mean Corpuscular Volume 91.1 fL (80.0-100.0) Mean Corpuscular Hemoglobin 31.5 pg (28.0-32.0) Mean Corpuscular Hemoglobin Concent 34.6 g/dL (32.0-36.0) Red Cell Distribution Width 13.1 % (11.8-14.3) Platelet Count 164 10^3/uL (140-450) Mean Platelet Volume 10.8 fL (6.9-10.8) Neutrophils (%) (Auto) 55.9 % (37.0-80.0) Lymphocytes (%) (Auto) 28.1 % (10.0-50.0) Monocytes (%) (Auto) 6.6 % (0.0-12.0) Eosinophils (%) (Auto) 8.1 % (0.0-7.0) Basophils (%) (Auto) 1.3 % (0.0-2.0) Neutrophils # (Auto) 2.8 10 ^3/uL (1.6-8.6) Lymphocytes # (Auto) 1.4 10 ^3/uL (0.4-5.4) Monocytes # (Auto) 0.3 10 ^3/uL (0-1.3) Eosinophils # (Auto) 0.4 10 ^3/uL (0-0.8) Basophils # (Auto) 0.1 10 ^3/uL (0-0.2) Nucleated Red Blood Cells 0.2 % Phosphorus Level 2.8 mg/dL (2.4-5.1) Magnesium Level 2.3 mg/dL (1.6-2.6) Total Bilirubin 0.6 mg/dL (0.2-1.0) Aspartate Amino Transferase (AST) 213 U/L (13-40) Alanine Aminotransferase (ALT) 323 U/L (7-40) Alkaline Phosphatase 134 U/L (46-116) Total Protein 7.1 g/dL (5.7-8.2) Albumin 4.0 g/dL (3.2-4.8) Hepatitis B Surface Antigen Negative (Negative) Hepatitis C Antibody Negative (Negative) Hemoglobin A1c 11.5 % A1C (<5.7) Test 11/04/24 04:33 11/03/24 22:25 11/03/24 20:23 Lipase 51 U/L (12-53) Lactic Acid Level 1.8 mmol/L (0.4-2.0) Urine Color Light-yellow (Yellow) Urine Clarity Turbid (Clear) Urine pH 5.0 (5.0-9.0) Urine Specific [place] 1.015 (1.001-1.035) Urine Protein 1+ (Negative) Urine Ketones Negative (Negative) Urine Blood Trace /uL (Negative) Urine Nitrite Negative (Negative) Urine Bilirubin Negative (Negative) Urine Urobilinogen Normal mg/dL (Negative) Urine Leukocyte Esterase 3+ /uL (Negative) Urine RBC 3 /hpf (0 - 4) Urine Microscopic WBC 91 /HPF (0-5) Urine Squamous Epithelial Cells Few /hpf (<5) Urine Bacteria None seen /hpf (None Seen) Urine Hyaline Casts Few /lpf (0 - 2) Urine Mucus Few (None Seen) Urine Creatinine 126.17 mg/dL (30.0-125.0) Urine Protein/Creatinine Ratio 0.50 Urine Sodium 36 mmol/L (40-220) Urine Glucose 4+ mg/dL (Normal) Urine Total Protein 63.7 mg/dL (1-14) Other Laboratory Tests 11/06/24 09:22 11/05/24 04:43 Brief Hx & Hospital Course: This is a 64 years old female past medical history of blindness come to emergency department abdominal pain. The patient had three days of right upper quadrant abdominal pain which is sharp and cramping. Her lab is normal. Her abdominal pelvis ultrasound showing hydroureteralnephrosis and hydro- ureterallithiasis, noted circumferential bladder wall thickening which may be seen in the setting of acute versus chronic cystitis and correlate with urinalysis. The patient was treat with IV antibiotic Rocephin. Blood culture is negative. The patient was discharge home on 11/05/2024. However, she is weak and required more physical therapy. Finally, today the patient physical therapy and set up discharge home. Activity as tolerated. Diet Per home diet. Follow up with primary care physician one to two weeks. The patient was advised to follow up with Urology as outpatient for possible cystoscopy and biopsy to further evaluation of her bladder thickening. Physical exam: HEENT: Normocephalic atraumatic pupils equal react to light and accommodation. Extraocular muscles intact, conjunctiva pink, oropharynx moist, no thrush, no exudate. Lymphatic: No lymphadenopathy Cardiovascular exam: S1, S2 was heard. No murmurs, rubs, gallops Lung: Clear on auscultation bilaterally, no wheeze, rale, rhonchi. GI: Abdominal soft, nondistended, nontenderness, positive bowel sounds. Extremity: No crepitus, cyanosis, edema. Pedal pulses present bilateral. Full range of motion. Skin: Normal turgor, no rash. Psych: Alert, oriented x3. Neurology: No focal deficits, cranial nerve II to XII grossly intact. This medical document was created using an electronic medical record system with [employer] computerized dictation system. Although this document has been carefully reviewed, there may still be some phonetic and typographical errors. These areas are purely typographical due to imperfections of the software programs, and do not reflect any compromise in the patient's medical care. Condition at Discharge: Stable Final Diagnosis/Problems List #Acute abdominal pain #Enteritis #UTI #Transaminitis #DM-2 #BENJAMÍN #Deconditioning. Discharge Disposition: Home Discharge Instruct/Medications Diet: Regular Activity: No Restrictions, As Tolerated Follow Up/Referral: PCP 1-2 WEEKS UROLOGY OUTPATIENT FOR POSSIBLE CYSTOSCOPY TO EVALUATE BLADDER THICKENING Medications: LEVAQUIN 500MG DAILY Scheduled Acetazolamide (Acetazolamide), 500 MG PO TID, (Reported) Dicyclomine Hcl (Bentyl Capsule), 2 CAP PO TID, (Reported) Empagliflozin (Jardiance), 25 MG PO DAILY, (Reported) Insulin Degludec (Tresiba), 36 UNIT SC HS, (Reported) Latanoprost (Latanoprost), 1 DROP EACHEYE QPM, (Reported) Levofloxacin Hemihydrate (Levaquin 500 Mg), 1 TAB PO DAILY Lisinopril (Lisinopril), 40 MG PO DAILY, (Reported) Discharge Statement: "Patient was advised to return to the ER or call 911 if any headaches, dizziness, shortness of breath, chest pain, abdominal pain, bleeding, fevers, or worsening of medical condition. Patient was counseled about treatment plan, medications, possible side effects, patientverbalized understanding. All questions were answered to the best of my ability. This discharge took greater then 30 minutes in planning, reviewing documentation, counseling the patient, and discussing with other team members." ASSESSMENT ASSESSMENT Assessment uti CYSTITIS Date of Service: Nov 07, 2024 Billing Provider: ESTHELA LR MD Common Visit Codes: 02463-[id number]/OBS DISCH DAY >30min ESTHELA LR MD Nov 07, 2024 17:47
== END 2024-11-07 15:14 | disposition home health service (06) | DRG 249 ==
LOC: ER 18:39 → OVERFLOW 23:37 → TELE-WESTW 11-04 22:40
PROVIDERS: ADMIT Internal Medicine; ATTEND Internal Medicine
DX: A08.4 Viral intestinal infection, unspecified (principal); N17.0 Acute kidney failure with tubular necrosis; E11.22 Type 2 diabetes mellitus with diabetic chronic kidney disease; N30.90 Cystitis, unspecified without hematuria; E86.0 Dehydration; I12.9 Hypertensive chronic kidney disease with stage 1 through stage 4 chronic kidney disease, or unspecified chronic kidney disease; N18.9 Chronic kidney disease, unspecified; N28.1 Cyst of kidney, acquired; R74.01 Elevation of levels of liver transaminase levels; Z90.49 Acquired absence of other specified parts of digestive tract; Z79.899 Other long term (current) drug therapy
CPT/HCPCS: 36415; 74176; 76705; 80048; 80053; 81001; 82570; 82962; 83036; 83605; 83690; 83735; 84100; 84156; 84300; 85025; 86803; 87040; 87340; 96361; 96365; 97110; 97116; 97163; G0378; J1815; J2405; J2543